=== PATIENT | female | born 1970 | race Caucasian/White ===

== ENCOUNTER → 2017-10-27 13:24 | Outpatient (CLI) | payer SELFPAY ==
[2017-11-01 15:49] LABS: HPV Reflexed? NOT INDICATED
== END ==
PROVIDERS: Visit Provider Obstetrics & Gynecology
DX: Z12.4 Encounter for screening for malignant neoplasm of cervix (principal); Z12.72 Encounter for screening for malignant neoplasm of vagina
CPT/HCPCS: 88175; G0145

== ENCOUNTER → 2017-10-28 14:30 | Outpatient (CLI) | payer OTHER, SELFPAY ==
--- NOTE | 2017-10-28 14:33 | BI_ITS ---
MAMMOGRAPHY - BILATERAL SCREENING 3-D ROMA SYNTHESIS REASON FOR EXAM: Female, 47 years old. Bilateral Screening 3-D tomosynthesis PERTINENT HISTORY: No significant family history. TECHNIQUE: 2-D mammograms and 3-D Roma synthesis of the breast (s) were performed. CAD was performed. COMPARISON: None. FINDINGS: The breast composition is heterogeneously dense that can obscure small breast masses. There are fairly well defined but not completely defined masses in both breasts these are likely simple cysts but since there are no previous studies available for comparison, bilateral breast ultrasounds are recommended. The right breast mass measures approximately 2.4 x 2.4 cm while the left breast mass measures approximately 3.6 x 3.7 cm and there may be a second mass measuring 2.8 x 2.8 cm. Scattered benign calcifications are seen. No dense spiculated masses or suspicious microcalcifications are identified. No architectural distortion is identified. There is no skin thickening or retraction. There has been no significant change since the prior study. BI/SCREENING MAMM (CAD), BILAT IMPRESSION: Bilateral breast masses, likely simple cysts. However, since there are no previous studies available for comparison, further evaluation with bilateral breast ultrasound recommended ASSESSMENT CATEGORY: BIRADS Category 0: Incomplete. Need additional imaging evaluation as above. A letter regarding these results will be sent to the patient by the facility within 30 days. FOLLOW UP RECOMMENDATION: Ultrasound Recommended. (I) Approximately 10% of breast cancers are not detected by mammography. A normal mammogram should not delay biopsy of a clinically suspicious abnormality. Electronically Signed: Harsh Roberts MD at 7:54 EDT , Service support ,
== END ==
PROVIDERS: Family Provider Family Medicine; PCP Family Medicine; Visit Provider Obstetrics & Gynecology
DX: Z12.31 Encounter for screening mammogram for malignant neoplasm of breast (principal)
CPT/HCPCS: 77063; 77067

== ENCOUNTER → 2017-11-04 10:25 | Outpatient (CLI) | payer SELFPAY ==
--- NOTE | 2017-11-04 10:36 | US_ITS ---
STUDY: ULTRASOUND BREAST - RIGHT REASON FOR EXAM: Female, 47 years old. Abnormal mammogram TECHNIQUE: Axial and longitudinal images of the RIGHT breast were performed with a high resolution ultrasound transducer. COMPARISON: None. FINDINGS: RIGHT Breast: In the upper outer quadrant of the right breast, at 9:00, 3 cm from the nipple is a well-defined anechoic 2.1 x 2.1 x 1.7 cm simple cyst. There is no suspicious shadowing solid lesion, architectural distortion or clustered calcifications. This cyst could be aspirated if it is bothersome to the patient. IMPRESSION: Simple 2.1 cm cyst. No suspicious sonographic findings. ASSESSMENT CATEGORY: BIRADS Category 2: Benign. A letter regarding these results will be sent to the patient by the facility within 30 days. Electronically Signed: Harsh Roberts MD at 14:09 EDT , Service support , STUDY: ULTRASOUND BREAST - LEFT REASON FOR EXAM: Female, 47 years old. Abnormal mammogram TECHNIQUE: Axial and longitudinal images of the LEFT breast were performed with a high resolution ultrasound transducer. COMPARISON: None. FINDINGS: LEFT Breast: Ultrasound evaluation of the left breast shows 2 separate simple cysts both at 1:00, 4 cm from the nipple. The larger measures 3.4 x 3.4 x 2.2 cm, the smaller 2.1 x 1.5 x 1.3 cm. No suspicious shadowing solid lesion, architectural distortion or clustered calcification. The cysts could be aspirated if they are bothersome to the patient US/Breast Limited Unilateral IMPRESSION: 2 separate simple cysts, no suspicious sonographic findings ASSESSMENT CATEGORY: BIRADS Category 2: Benign. A letter regarding these results will be sent to the patient by the facility within 30 days. Electronically Signed: Harsh Roberts MD at 14:10 EDT , Service support ,
== END ==
PROVIDERS: Family Provider Family Medicine; PCP Family Medicine; Visit Provider Obstetrics & Gynecology
DX: R92.8 Other abnormal and inconclusive findings on diagnostic imaging of breast (principal)
CPT/HCPCS: 76642

== ENCOUNTER → 2018-12-18 12:17 | Outpatient (CLI) | payer BC, SELFPAY ==
--- NOTE | 2018-12-18 12:21 | BI_ITS ---
MAMMOGRAPHY - BILATERAL SCREENING REASON FOR EXAM: Female, 48 years old. Routine annual screening examination. PERTINENT HISTORY: Non-contributory. TECHNIQUE: Digital bilateral breast roma (3D mammographic acquisition) in the CC and MLO projections. 2-D mediolateral oblique (MLO) and craniocaudad (CC) views of both breasts were obtained. CAD: Full Field Digital Mammography with Computer Added Detection was performed. COMPARISON: Comparison is made with prior examination dated October 28, 2017 and November 04, 2017. FINDINGS: Breast Composition: The breasts are extremely dense, which lowers the sensitivity of mammography. 1.4 cm x 1.3 cm well-defined nodule in the upper anterior lateral aspect of the right breast. There is also evidence of a 1.6 cm x 1.9 cm well-defined nodule in the upper lateral portion of the left breast. These have decreased in size as compared to prior study. Prior ultrasound of both breasts demonstrated to be small cysts. No other significant abnormalities are identified. BI/SCREEN MAMM (CAD) W/ROMA BILAT IMPRESSION: Interval decrease in size of the bilateral breast nodules as described. Prior sonogram demonstrated these to be cysts.. Yearly follow-up mammogram recommended. (A) ASSESSMENT CATEGORY: BIRADS Category 2: Benign. A letter regarding these results will be sent to the patient by the facility within 30 days. Approximately 10% of breast cancers are not detected by mammography. A normal mammogram should not delay biopsy of a clinically suspicious abnormality. [id number] Electronically Signed: Eloy Boles, at 13:44 EDT , Service support ,
== END ==
PROVIDERS: Family Provider Family Medicine; PCP Family Medicine; Referring Provider Obstetrics & Gynecology; Visit Provider Obstetrics & Gynecology
DX: Z12.31 Encounter for screening mammogram for malignant neoplasm of breast (principal)
CPT/HCPCS: 77063; 77067

== ENCOUNTER → 2021-01-07 | Outpatient (CLI) | payer OTHER, SELFPAY | END | disposition home or self-care (01) | LOC: LABSPEC 16:46 | PROVIDERS: PCP Family Medicine; Referring Provider Family Medicine; Visit Provider Family Medicine | DX: U07.1 COVID-19 (principal) | CPT/HCPCS: 87635; U0005; U0003 ==

== ENCOUNTER 2021-04-22 16:50 | Outpatient (CLI) | payer OTHER, SELFPAY | END 2021-04-22 23:59 | disposition short-term general hospital (02) | PROVIDERS: PCP Family Medicine; Referring Provider Family Medicine; Visit Provider Nurse Practitioner Family | DX: U07.1 COVID-19 (principal) | CPT/HCPCS: 87635; U0003; U0005 ==

== ENCOUNTER 2021-07-21 09:39 | Outpatient (CLI) | payer OTHER, SELFPAY ==
--- NOTE | 2021-07-21 09:41 | BI_ITS ---
MAMMOGRAPHY - BILATERAL SCREENING REASON FOR EXAM: Female, 51 years old. Routine annual screening examination. PERTINENT HISTORY: Non-contributory. TECHNIQUE: Digital bilateral breast roma (3D mammographic acquisition) in the CC and MLO projections. 2-D mediolateral oblique (MLO) and craniocaudad (CC) views of both breasts were obtained. CAD: Full Field Digital Mammography with Computer Added Detection was performed. COMPARISON: Comparison is made with prior examination of 12/18/2018 and 10/28/2017. FINDINGS: Breast Composition: The breasts are extremely dense, which lowers the sensitivity of mammography. There is a 1.4 CHANG by 1.6 cm well-defined nodule in the slightly upper lateral aspect of the left breast. Adjacent to this, there is a 1.6 cm x 1.4 cm slightly lobulated nodule. Repeat sonogram is recommended. There is also evidence of a 1.2 cm by 1.2 cm well-defined nodule in the slightly upper lateral aspect of the right breast. Repeat sonogram recommended. No other significant abnormalities are identified. BI/SCRN MAMM (CAD)W/ROMA BILAT IMPRESSION: Bilateral breast nodules as described. Correlation with ultrasound is recommended. ASSESSMENT CATEGORY: BIRADS Category 0: Incomplete. Need additional imaging evaluation. A letter regarding these results will be sent to the patient by the facility within 30 days. Approximately 10% of breast cancers are not detected by mammography. A normal mammogram should not delay biopsy of a clinically suspicious abnormality. [id number] Electronically Signed: Eloy Boles MD at 10:53 EDT ,
== END 2021-07-21 23:59 | disposition home or self-care (01) ==
LOC: OPBI 09:41
PROVIDERS: PCP Family Medicine; Visit Provider Registered Nurse
DX: Z12.31 Encounter for screening mammogram for malignant neoplasm of breast (principal)
CPT/HCPCS: 77063; 77067

== ENCOUNTER 2021-07-24 09:00 | Outpatient (CLI) | payer OTHER, SELFPAY ==
--- NOTE | 2021-07-24 09:05 | US_ITS ---
STUDY: ULTRASOUND BREAST - RIGHT REASON FOR EXAM: Female, 51 years old. Abnormal screening mammogram. TECHNIQUE: Axial and longitudinal images of the RIGHT breast were performed with a high resolution ultrasound transducer. # OF IMAGES: 27 COMPARISON: Comparison is made with prior mammogram dated 07/21/2021 and prior sonogram of the breasts dated 11/04/2017. FINDINGS: RIGHT Breast: There is a 1 cm x 1.1 cm x 1.2 cm cyst at the 9 o''clock position of the breast at 3 cm from nipple. This corresponds to the mammographic abnormality. IMPRESSION: 1 cm x 1.1 cm x 1.2 cm cyst at the 9 o''clock position of the breast at 3 cm from the nipple. ASSESSMENT CATEGORY: BIRADS Category 2: Benign. A letter regarding these results will be sent to the patient by the facility within 30 days. Electronically Signed: Eloy Boles MD at 10:47 EDT , STUDY: ULTRASOUND BREAST - LEFT REASON FOR EXAM: Female, 51 years old. Abnormal screening mammogram. TECHNIQUE: Axial and longitudinal images of the LEFT breast were performed with a high resolution ultrasound transducer. # OF IMAGES: 27 COMPARISON: Comparison is made with prior mammogram on 07/21/2021. FINDINGS: LEFT Breast: The upper-outer quadrant of the left breast was examined. There is a 1.7 cm x 1.8 cm x 1.4 cm cyst at the 1 o''clock position breast at 2 cm from nipple. There is also evidence of a 1.5 cm x 1.4 cm x 1.4 cm predominantly hypoechoic well-defined nodule at the 1 o''clock position breast at 4 cm from the nipple. This may represent either a cyst with a low level echoes within it such as hemorrhagic cyst versus possible hypoechoic solid nodule. Tissue diagnosis recommended. US/Breast Limited Unilateral IMPRESSION: 1.7 cm x 1.8 cm x 1.4 cm cyst at the 1 o''clock position of the breast at 2 cm from nipple. 1.5 cm x 1.4 cm x 1.4 cm nodule representing either hemorrhagic cyst or possible hypoechoic solid nodule. Tissue diagnosis recommended. ASSESSMENT CATEGORY: BIRADS Category 4: Suspicious - Biopsy Should Be Considered. A letter regarding these results will be sent to the patient by the facility within 30 days. Electronically Signed: Eloy Boles MD at 10:54 EDT ,
--- NOTE | 2021-08-03 15:06 | NURSING ---
Referral received for Dr. Harris, faxed to [facility]. This RN spoke with Jyoti and is aware that patient wishes to call and schedule her own consultation, when she has time. Pt stated this could be end of end of August/September.
== END 2021-07-24 23:59 | disposition home or self-care (01) ==
PROVIDERS: PCP Family Medicine; Referring Provider Registered Nurse; Visit Provider Registered Nurse
DX: N63.11 Unspecified lump in the right breast, upper outer quadrant (principal); N63.21 Unspecified lump in the left breast, upper outer quadrant
CPT/HCPCS: 76642

== ENCOUNTER → 2021-08-06 | Outpatient (CLI) | payer OTHER, SELFPAY ==
--- NOTE | 2021-08-05 | BRBX_PTH ---
PATIENT: ANY POTTER LOC: [facility] U#:[id number] AGE/SX: 51/F ROOM: RE08/06/[address]: Dr. Saray Berumen MD : 1970 BED: DIS: 08/06/2021 SPEC #: [id number] RECD: 08/06/21 08:12 STATUS: XIN REQ #: [id number] DANIEL: 08/05/21 00:[address]: Saray Berumen DEPT: SURGICAL PATHOLOGY RECD BY: Lev Whiting ENTERED: 08/06/21 08:37 SP TYPE: BREAST BX OTHR DR: Dr. Aimee Feng MD Tissues: Left breast, NOS Procedures: Surgery Specimen Level IV HEADER OPERATION: Left breast biopsy PRE-OP DIAGNOSIS: Left breast mass TISSUE SUBMITTED: Left breast tissue ? sebaceous cyst MICROSCOPIC DIAGNOSIS Left breast, core biopsy: Fragments of benign breast tissue with focal changes suggestive for hyalinized fibroadenoma. Negative for atypia or malignancy. See comment. /SJ 08/07/2021 COMMENT Correlation with clinical, radiologic findings and appropriate follow up are necessary. MICROSCOPIC DESCRIPTION Slides are reviewed. GROSS DESCRIPTION Received in fixative is one container labeled with the patient name and designated left breast?. The specimen consists of multiple elongated fragments of borrego-yellow fibroadipose tissue that in aggregate measure 1 x 0.5 x 0.1 cm. The entire specimen is submitted in one cassette. / SJ:IRVING 08/07/21 TC: 5 CPT: 79326
== END | disposition home or self-care (01) ==
LOC: LABSPEC 08:25
PROVIDERS: PCP Family Medicine; Visit Provider Surgery
DX: N63.20 Unspecified lump in the left breast, unspecified quadrant (principal)
CPT/HCPCS: 88305

== ENCOUNTER → 2023-07-14 | Outpatient (CLI) | payer OTHER, SELFPAY ==
--- NOTE | 2023-07-14 08:42 | BI_ITS ---
MAMMOGRAPHY - BILATERAL SCREENING REASON FOR EXAM: Female, 53 years old. Routine annual screening examination. PERTINENT HISTORY: Non-contributory. Prior bilateral cystic aspiration. TECHNIQUE: Digital bilateral breast roma (3D mammographic acquisition) in the CC and MLO projections. 2-D mediolateral oblique (MLO) and craniocaudad (CC) views of both breasts were obtained. CAD: Full Field Digital Mammography with Computer Added Detection was performed. COMPARISON: Comparison is made with prior study July 21, 2021 and December 18, 2018. FINDINGS: Breast Composition: The breasts are extremely dense, which lowers the sensitivity of mammography. There is a 1.2 cm x 1.2 cm well-defined nodular density with peripheral calcification in the upper lateral aspect of the left breast. There is a 1.1 cm x 1.1 cm well-defined nodule with peripheral calcification in the anterior upper lateral aspect of the right breast. No other significant abnormalities are identified. There has been no significant change since the prior study. BI/SCRN MAMM (CAD)W/ROMA BILAT IMPRESSION: Stable bilateral screening mammogram. Yearly follow-up mammogram recommended. (A) ASSESSMENT CATEGORY: BIRADS Category 2: Benign. A letter regarding these results will be sent to the patient by the facility within 30 days. Approximately 10% of breast cancers are not detected by mammography. A normal mammogram should not delay biopsy of a clinically suspicious abnormality. [id number] Electronically Signed: Eloy Boles MD at 9:35 EDT ,
== END | disposition home or self-care (01) ==
LOC: OPBI 08:41
PROVIDERS: PCP Family Medicine; Referring Provider Nurse Practitioner Family; Visit Provider Nurse Practitioner Family
DX: Z12.31 Encounter for screening mammogram for malignant neoplasm of breast (principal)
CPT/HCPCS: 77063; 77067